=== PATIENT | female | born 1960 | race Caucasian/White ===

== ENCOUNTER 2018-03-17 08:14 | Emergency (ER) | payer BC ==
[2018-03-17] MEDS: predniSONE 20 MG TAB PO (08:58)
[2018-03-17] MEDS: TRIAMCINOLONE ACET 0.1% 15 GM CR TOP (09:12)
== END 2018-03-17 09:38 | disposition home or self-care (01) ==
LOC: FTE 08:14
DX: L23.9 Allergic contact dermatitis, unspecified cause (principal); I10 Essential (primary) hypertension; Z85.3 Personal history of malignant neoplasm of breast
CPT/HCPCS: 99283; J7512